=== PATIENT | male | born 1990 | race Caucasian/White ===

== ENCOUNTER 2024-09-10 15:21 | Emergency (ER) | payer BC, SELFPAY ==
[2024-09-10 15:23] VITALS: BP 143/92
[2024-09-10 16:00] VITALS: BP 138/87
--- NOTE | 2024-09-10 16:42 | ED.GENMED ---
History of Present Illness
General
Chief Complaint: Abdominal Pain
Time Seen by Provider: 09/10/24 16:28
History of Present Illness
History of Present Illness:
34-year-old male with no past medical history presents to the emergency department for evaluation of right upper quadrant abdominal pain ongoing for the past week. Pain has been worsening postprandial as well as with bending forward. No prior
abdominal surgeries. Denies any fevers or chills. Pain did worsen after eating over the past 2 days, states that worsened within 5 to 10 minutes. No chest pain or shortness of breath. No dysuria or hematuria.
Review of Systems
Review of Systems
Allergies reviewed?: Yes
All Other Systems: ROS reviewed and negative except as documented in HPI and ROS
Phy Exam
Physical Exam
Physical Exam:
GEN: Well appearing, NAD, WDWN
HEENT: Oral mucosa moist, no scleral icterus
Cardiac: Regular rate
Lung: No respiratory distress, no tachypnea
Abdomen soft, mild right upper quadrant tenderness, negative Brown sign
MSK: No gross deformity or injuries
Skin: Good color, no pallor or jaundice, no rashes
Neuro: AO x3, moves all extremities freely
Psych: Calm, cooperative
Course
Orders/Labs/Results
Orders:
Orders
09/10/24 16:22
Complete Blood Count/With Diff Urgent
Comprehensive Metabolic Panel Urgent
Lipase Urgent
09/10/24 16:42
US Abdomen Complete/Upper Urgent
Comment:
Reason For Exam: RUQ pain
09/10/24 17:28
Sucralfate Suspension [Carafate Suspension] 1 gm PO NOW STA
Abnormal Lab Results
09/10/24
16:22
Glucose 104 H mg/dl
(70-99)
ALT 64 H U/L
(0-50)
09/10/24 16:22
09/10/24 16:22
Vital Signs
Initial and Last Documented VS:
Initial Vital Signs
Temp Pulse Resp BP Pulse Ox
98.6 F 87 16 143/92 98
09/10/24 15:23 09/10/24 15:23 09/10/24 15:23 09/10/24 15:23 09/10/24 15:23
Last Documented Vital Signs
Temp Pulse Resp BP Pulse Ox
98.6 F 71 22 136/87 99
09/10/24 15:23 09/10/24 16:00 09/10/24 16:00 09/10/24 16:55 09/10/24 16:56
MDM/Problems Addressed
MDM/Problems Addressed:
Ultrasound reassuring, labs unremarkable. Likely gastritis or peptic ulcer disease. No lower abdominal tenderness concerning for appendicitis. Will treat with PPI and H2 andrew, recommend PCP follow-up
*Critical Care Note
Total Time (30-74mins, 75-104mins- exclusive of procedures): Not Applicable
ED Attending Note
-
Portions of this chart may have been created with voice recognition software.� Occasional wrong word or��sound alike� substitutions may have occurred due to the inherent limitations of voice recognition software.
Discharge Plan
Departure
Patient Disposition: Home (Routine Discharge)
Date of Disposition: 09/10/24
Time of Disposition: 18:29
Patient with high blood pressure during this ER visit?: No
Discharge Problem:
Abdominal pain, acute, right upper quadrant
Instructions: Abdominal Pain
Prescriptions:
New
pantoprazole 40 mg tablet,delayed release (DR/EC)
40 mg PO DAILY Qty: 14 0RF
famotidine 40 mg tablet
40 mg PO BID Qty: 20 0RF
Referrals:
NONE,* [Family Provider] -
Interventions
Interventions:
*Risk Screen - Suicide Last Done: 09/10/24 15:23
*General Assessment Last Done: 09/10/24 15:23
*Neglect/Abuse Screening Last Done: 09/10/24 15:23
ED- Fall Risk Assessment Last Done: 09/10/24 17:10
*ED COVID-19 Vaccine History Last Done: 09/10/24 18:38
*Nursing Disposition Last Done: 09/10/24 18:38
[facility] Assessment Last Done: 09/10/24 17:10
Discharge Date and Time
Print Language: HONDURAN
[2024-09-10 16:45] LABS: % Basophils 0.1 % (0-2); % Eosinophils 1.8 % (0-6); % Immature Granulocytes 0.3 % (0-0.5); % Lymphocytes 29.5 % (20.5-51.1); % Monocytes 7.7 % (1.7-9.3); % Neutrophils 60.6 % (42.2-75.2); Absolute Eosinophils 0.1 10^3/uL (0-0.7); Absolute Lymphocytes 2.1 10^3/uL (1.2-3.4); Absolute Monocytes 0.5 10^3/uL (0.1-0.6); Absolute Neutrophils 4.3 10^3/uL (1.4-6.5); Hematocrit 41.2 % (39.0-52.0); Hemoglobin 13.9 g/dL (13.0-18.0); Mean Corp Hgb Conc. 33.7 g/dL (33.0-37.0); Mean Corpuscular Hgb 29.1 pg (27.0-31.0); Mean Corpuscular Volume 86.2 fL (80.0-94.0); Mean Platelet Volume 9.7 fL (7.4-10.4); Nucleated Red Blood Cells % 0 % (-); Platelet Count 266 10^3/uL (130-400); Red Blood Cell Count 4.78 10^6/uL (4.70-6.10); Red Cell Dist. Width 12.4 % (11.5-14.5); White Blood Cell Count 7.1 10^3/uL (4.8-10.8)
[2024-09-10 16:55] VITALS: BP 136/87
[2024-09-10 16:58] LABS: ALT (SGPT) 64 U/L (0-50); AST (SGOT) 41 U/L (17-59); Albumin 4.8 g/dl (3.5-5.0); Alkaline Phosphatase 41 U/L (38-126); Blood Urea Nitrogen 16 mg/dl (9-20); Calcium 9.5 mg/dl (8.4-10.2); Carbon Dioxide 26 mmol/L (22-30); Chloride 103 mmol/L (98-107); Glucose 104 mg/dl (70-99); Lipase 236 U/L (23-300); Potassium 4.3 mmol/L (3.5-5.1); Sodium 141 mmol/L (135-145); Total Bilirubin 0.7 mg/dl (0.2-1.3); Total Protein 7.8 g/dl (6.3-8.2); eGFR > 60.00
[2024-09-10 17:07] VITALS: BMI 30.8
[2024-09-10] MEDS: CARAFATE SUSPENSION 1 GM PO (18:09)
[2024-09-10 18:38] VITALS: BP 149/90
== END 2024-09-10 18:42 | disposition home or self-care (01) ==
LOC: EMR 15:21
PROVIDERS: EMERGENCY PHYSICIAN Emergency Medicine
DX: R10.11 Right upper quadrant pain (principal)
CPT/HCPCS: 99284; 76700; 80053; 83690; 85025